=== PATIENT | male | born 1965 | race Caucasian/White ===

== ENCOUNTER 2017-03-29 13:05 | Emergency (ER) | payer BC ==
[2017-03-29] MEDS ORDERED: ASPIRIN 81 MG CHEW TAB ONE (13:07)
[2017-03-29] MEDS: ASPIRIN 81 MG CHEW TAB PO ONE (13:08)
[2017-03-29 13:22] LABS: BASOPHILS % 0.9 (0.0-1.5); EOSINOPHILS % 2.7 % (0.0-6.8); MEAN CORPUSCULAR HEMOGLOBIN 32.4 pg (28.0-34.0); MEAN CORPUSCULAR VOLUME 94.9 fl (80.0-100.0); MONOCYTES % 5.6 % (0.0-11.0); NEUTROPHILS # 5.8 # k/uL (1.4-7.7)
[2017-03-29 13:36] LABS: eGFR (African) > 60; eGFR (Non-African) > 60
--- NOTE | 2017-03-29 14:02 | Diagnostic Imaging Report ---
[facility] [id number] [facility].[address] [id number] Report Submission Date: March 29, 2017 1:51:10 PM CDT Patient Study Name: SHASHA ACUNA Date: March 29, 2017 1:21:43 PM CDT Modality Type: CR Gender: M Description: CHEST : 67 Institution: [facility] Physician ADELINA BARNETT - ER Chest, 2 view History: CHEST PAIN X 3-4 HOURS Findings: The heart size is normal. The lungs are clear. There is no pleural effusion or pneumothorax identified. The osseous structures are normal. Impression: 1. No acute pulmonary disease. Electronically signed on March 29, 2017 1:51:10 PM CDT by: Ajith VILLAGOMEZ
[2017-03-29 20:15] VITALS: BP 148/73
--- NOTE | 2017-06-06 11:33 | ED Physician Documentation ---
Chest Pain - HISTORIAN Historian: patient - HPI Stated Complaint: CHEST PAIN Chief Complaint: Chest Pain Additional Information: pt adm ed w/cp approx 1300hrs-rec care from DR BARNETT. he did hand p but since recent update we are unable to view his documentation,therefore will finish w/ discharge summary Onset: hours (2-3) Timing: still present Duration: other (several hours) Last known Well Date: 03/29/17 Last Known Well Time: 10:00 Context: other (at work) Severity: mild Quality: pressure Chest Pain Radiation: no radiation Chest Pain Signs/Symptoms: denies: nausea, vomiting, diaphoresis - ROS CONST: none - PAST HX [place] risk factors: diabetes Type 1, A-Fib Immunizations: referred to PCP Allergies/Adverse Reactions: Allergies Allergy/AdvReac Type Severity Reaction Status Date / Time No Known Allergies Allergy Unverified 03/29/17 13:28 Home Medications: Ambulatory Orders Medication Instructions Recorded NK [NK] 03/29/17 - SOCIAL HX Smoking History: greater than 1 pack/day - FAMILY HX Family HX: none - VITAL SIGNS Vital Signs: Vital Signs Temp Pulse Resp BP Pulse Ox 97 F L 85 22 148/73 98 03/29/17 13:05 03/29/17 20:14 03/29/17 20:14 03/29/17 20:14 03/29/17 20:14 - REVIEWED ASSESSMENTS Nursing Assessment Reviewed: Yes Vitals Reviewed: Yes ED Results Lab/Radiology - Lab Results Lab Results: Lab Results 03/29/17 03/29/17 03/29/17 18:55 13:34 13:15 WBC RBC Hgb Hct MCV MCH MCHC RDW Plt Count Neut % (Auto) Lymph % (Auto) [place] % (Auto) Eos % (Auto) Baso % (Auto) Neut # Lymph # [place] # Eos # Baso # Reactive Lymphs % Reactive Lymphs # Sodium Potassium Chloride Carbon Dioxide BUN Creatinine Estimated Creat Clear Est GFR ( Amer) Est GFR (Non-Af Amer) Glucose Calcium Total Bilirubin AST ALT Alkaline Phosphatase Troponin I < 0.03 ng/mL L ng/mL < 0.03 ng/mL L ng/mL (0.03-0.06) (0.03-0.06) Total Protein Albumin Amylase 34 U/L U/L (20-104) 03/29/17 03/29/17 13:15 13:15 WBC 10.40 K/ul K/ul (4.00-12.00) RBC 5.37 M/ul H M/ul (3.90-5.20) Hgb 17.4 g/dL g/dL (12.0-18.0) Hct 50.9 % % (37.0-53.0) MCV 94.9 fl fl (80.0-100.0) MCH 32.4 pg pg (28.0-34.0) MCHC 34.2 g/dL g/dL (30.0-36.0) RDW 12.8 % % (11.3-14.3) Plt Count 269 K/mm3 K/mm3 (130-400) Neut % (Auto) 55.4 % % (39.0-79.0) Lymph % (Auto) 33.5 % % (16.0-50.0) [place] % (Auto) 5.6 % % (0.0-11.0) Eos % (Auto) 2.7 % % (0.0-6.8) Baso % (Auto) 0.9 (0.0-1.5) Neut # 5.8 # k/uL # k/uL (1.4-7.7) Lymph # 3.5 # k/uL # k/uL (0.6-4.0) [place] # 0.6 # k/uL # k/uL (0.0-0.9) Eos # 0.3 # k/uL # k/uL (0.0-0.6) Baso # 0.1 # k/uL # k/uL (0.0-0.5) Reactive Lymphs % 1.8 % % (0.0-5.0) Reactive Lymphs # 0.2 # k/uL # k/uL (0.0-0.8) Sodium 134 mmol/L L mmol/L (136-145) Potassium 4.4 mmol/L mmol/L (3.5-5.0) Chloride 103 mmol/L mmol/L (98-110) Carbon Dioxide 26 mmol/L mmol/L (20-32) BUN 10 mg/dL mg/dL (10-26) Creatinine 1.1 mg/dL mg/dL (0.4-1.5) Estimated Creat Clear 144 Est GFR ( Amer) > 60 (60 - ) Est GFR (Non-Af Amer) > 60 (60 - ) Glucose 192 mg/dL H mg/dL (70-99) Calcium 9.8 mg/dL mg/dL (8.5-10.5) Total Bilirubin 0.9 mg/dL mg/dL (0.2-1.2) AST 21 U/L U/L (0-41) ALT 17 U/L U/L (0-45) Alkaline Phosphatase 78 U/L U/L (46-116) Troponin I Total Protein 8.1 g/dL g/dL (6.0-8.5) Albumin 4.7 g/dL g/dL (3.0-5.5) Amylase - Orders Orders: ED Orders Category Date Time Status Continuous EKG monitoring Q30M Care 03/29/17 13:08 Active Continuous Pulse Oximetry Q30M Care 03/29/17 13:[address] Saline Lock/IV NOW Care 03/29/17 13:08 Completed CHEST P.A.&LAT 2 VIEWS [RAD] Stat Exams 03/29/17 Completed AMYLASE Routine Lab 03/29/17 13:34 Completed CBC/PLATELET/DIFF Routine Lab 03/29/17 13:15 Completed CMP Routine Lab 03/29/17 13:15 Completed GLYCOHEMOGLOBIN A1C with eAG Routine Lab 03/29/17 13:15 Received TROPONIN I (cTnI) Routine Lab 03/29/17 18:55 Completed TROPONIN I (cTnI) Stat Lab 03/29/17 13:15 Completed Aspirin Med 03/29/17 13:07 Discontinued 324 mg .ROUTE .STK-MED ONE Aspirin Med 03/29/17 13:07 Discontinued 324 mg PO NOW ONE Oxygen Daily Oxygen 03/29/17 13:15 Ordered EKG WITH COMPARISON Stat Ther 03/29/17 Ordered EKG WITH COMPARISON Stat Ther 03/29/17 13:08 Completed Chest Pain Physical Exam - EXAM General Appearance: mild distress EENT: eye inspection normal, ENT inspection normal Neck: nml inspection Respiratory: no resp. distress, chest non-tender, nml breath sounds CVS: reg. rate & rhythm Skin: warm/dry, normal color Neuro: oriented X3 Discharge Clincal Impression: atypical chest pain-resolved, hyperglycemia Referrals: Primary Doctor,No [Primary Care Provider] - 2 Days Home Medications: Ambulatory Orders NK [NK] 03/29/17 Comments: rest of documentation by DR BARNETT./ not recvoverabls since recent computer update. the tropinin was ok - ecg showed early repolarization. [place]kg[place] [facility] [place] [facility] [place]she thought onlyh repol and not ischemic, therefore will dismiss pt for f/u per pcp or rt ed. we did rec pt f/u closely hbis blood sugar. he prev had diabetes but a1c ret to normal after wt loss and he has not followed his bs since. he relates he will f/u re cardiac status and bs status soon. Condition: Good Disposition: 01 HOME, SELF-CARE Decision to Admit: NO Decision Time: 20:39
== END 2017-03-29 20:58 | disposition home or self-care (01) ==
LOC: ED 13:05
DX: R07.89 Other chest pain (principal); R73.9 Hyperglycemia, unspecified
CPT/HCPCS: 71020; 80053; 82150; 83036; 84484; 85025; 99282; 99283; S1016